=== PATIENT | female | born 2000 | race Caucasian/White ===

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

== ENCOUNTER → 2019-05-30 | Outpatient (CLI) | payer OTHER ==
[2019-06-01 02:05] LABS: CHLAMYDIA TRACHOMATIS, NAA Negative (Negative); NEISSERIA GONORRHOEAE, NAA Negative (Negative)
== END ==
LOC: LAB 11:51 → LAB SHORT 11:51
PROVIDERS: Registered Nurse Community Health
DX: Z34.91 Encounter for supervision of normal pregnancy, unspecified, first trimester (principal)
CPT/HCPCS: 87491; 87591

== ENCOUNTER → 2019-12-18 | Outpatient (CLI) | payer OTHER | LOC: LAB SHORT 12:17 → LAB 12:17 | DX: Z34.92 Encounter for supervision of normal pregnancy, unspecified, second trimester (principal) | CPT/HCPCS: 87081; 87653 ==

== ENCOUNTER 2020-01-14 18:29 | Inpatient (IN) | payer OTHER ==
[~2020-01-14] VITALS: Ht 165.1 cm; Wt 81.8 kg
[2020-01-14] MEDS ORDERED: PRENATAL TABLE1 EAC2 PO (20:09)
[2020-01-14] MEDS ORDERED: ALBU90OI INH (20:10)
[2020-01-14 20:12] LABS: BASOPHILS ABSOLUTE AUTO 0.04 K/mm3 (0.00-0.23); BASOPHILS PERCENT AUTO 0 % (0-2); EOSINOPHILS ABSOLUTE AUTO 0.05 K/mm3 (0.00-0.68); EOSINOPHILS PERCENT AUTO 0 % (0-6); Hematocrit 36.9 % (33.0-51.0); Hemoglobin 12.6 g/dL (11.5-16.0); IMMATURE GRAN ABSOLUTE AUTO 0.11 K/mm3 (0.00-0.10); IMMATURE GRAN PERCENT AUTO 1 % (0-1); LYMPHOCYTES ABSOLUTE AUTO 2.57 K/mm3 (0.84-5.20); LYMPHOCYTES PERCENT AUTO 16 % (21-46); MONOCYTES ABSOLUTE AUTO 1.18 K/mm3 (0.16-1.47); MONOCYTES PERCENT AUTO 7 % (4-13); Mean Corpuscular HGB 29.9 pg (26.0-34.0); Mean Corpuscular HGB Conc 34.1 g/dL (31.5-36.5); Mean Corpuscular Volume 87 fL (80-100); Mean Platelet Volume 11.8 fL (9.1-12.4); NEUTROPHILS ABSOLUTE AUTO 12.63 K/mm3 (1.96-9.15); NEUTROPHILS PERCENT AUTO 76 % (41-73); Platelet Count 193 K/mm3 (150-400); RDW Coefficient Variation 13.4 % (11.7-14.2); RDW Standard Deviation 42.9 fL (35.1-46.3); Red Blood Cell Count 4.22 M/mm3 (3.80-5.20); White Blood Cell Count 16.58 K/mm3 (4.00-11.30)
[2020-01-16 05:56] LABS: BASOPHILS ABSOLUTE AUTO 0.05 K/mm3 (0.00-0.23); BASOPHILS PERCENT AUTO 0 % (0-2); EOSINOPHILS ABSOLUTE AUTO 0.24 K/mm3 (0.00-0.68); EOSINOPHILS PERCENT AUTO 2 % (0-6); Hematocrit 34.6 % (33.0-51.0); Hemoglobin 11.1 g/dL (11.5-16.0); IMMATURE GRAN PERCENT AUTO 1 % (0-1); LYMPHOCYTES ABSOLUTE AUTO 3.23 K/mm3 (0.84-5.20); LYMPHOCYTES PERCENT AUTO 25 % (21-46); MONOCYTES ABSOLUTE AUTO 1.14 K/mm3 (0.16-1.47); MONOCYTES PERCENT AUTO 9 % (4-13); Mean Corpuscular HGB 29.4 pg (26.0-34.0); Mean Corpuscular HGB Conc 32.1 g/dL (31.5-36.5); Mean Platelet Volume 11.5 fL (9.1-12.4); NEUTROPHILS ABSOLUTE AUTO 7.98 K/mm3 (1.96-9.15); NEUTROPHILS PERCENT AUTO 63 % (41-73); Platelet Count 146 K/mm3 (150-400); RDW Coefficient Variation 14.1 % (11.7-14.2); RDW Standard Deviation 46.7 fL (35.1-46.3); Red Blood Cell Count 3.77 M/mm3 (3.80-5.20); White Blood Cell Count 12.74 K/mm3 (4.00-11.30)
[2020-01-16 06:02] LABS: Mean Corpuscular Volume 92 fL (80-100)
[2020-01-16] MEDS ORDERED: IBUP800 (09:28)
--- NOTE | 2020-01-16 10:03 | NUR ---
rx for ibuprofen 800mg, take 1 po q 8 hrs prn pain, #30, 1 refill called in to [facility] automated line at [id number]
--- NOTE | 2020-01-16 10:46 | NUR ---
D/C INSTRUCTIONS DISCUSSED AND SIGNED. PT ARANZA NB CARE WELL. NO QUESTIONS OR CONCERNS AT THIS TIME.
--- NOTE | 2020-01-16 10:54 | NUR ---
D/C HOME WITH BABY
--- NOTE | 2020-01-16 12:07 | NUR ---
CONSULT. PLANNING HOME TODAY. BABY IS CURRENTLY AT BREAST, INSTRUCT/DEMO POSITIONING, OBTAINING AN INITIAL DEEPER LATCH, WIDENING LATCH FURTHER FOR BETTER COMFORT. BOTH PARENTS LOVING AND ATTENTIVE TO BABY. INSTRUCT IN CHANGES TO EXPECT DURING THE FIRST WEEK WITH FEEDINGS AND WITH BABY AND REFERRED TO BF [facility] AND BF [facility] FOR PHOTOS AND INFORMATION. DENIES FURTHER QUESTIONS. HANDLING BABY WELL.
== END 2020-01-16 10:55 | disposition home or self-care (01) | DRG 807 ==
LOC: OBS 18:29 → BC 18:29 → OBS 19:48 → BC 19:49
PROVIDERS: ADMIT Registered Nurse Community Health
PROC: 10E0XZZ Delivery of Products of Conception, External Approach (ICD-10-PCS; principal; 2020-01-15)
PROC: 0KQM0ZZ Repair Perineum Muscle, Open Approach (ICD-10-PCS; 2020-01-15)
PROC: 10907ZC Drainage of Amniotic Fluid, Therapeutic from Products of Conception, Via Natural or Artificial Opening (ICD-10-PCS; 2020-01-15)
PROC: 3E0R3BZ Introduction of Anesthetic Agent into Spinal Canal, Percutaneous Approach (ICD-10-PCS; 2020-01-15)
DX: O69.81X0 Labor and delivery complicated by cord around neck, without compression, not applicable or unspecified (principal); Z37.0 Single live birth; O70.1 Second degree perineal laceration during delivery; Z3A.40 40 weeks gestation of pregnancy
CPT/HCPCS: 36415; 51702; 85025; 86850; 86900; 86901; 99214; A9270; J1885; J2001; J2210; J2405; J2590; J3010; J7120

== ENCOUNTER 2023-09-09 03:04 | Day surgery (SDC) | payer BC, OTHER ==
[~2023-09-09 03:04] MED LIST: ALBU90OI INH; IBUP800; PRENATAL TABLE1 EAC2 PO
[2023-09-09 08:02] VITALS: BP 129/76
[2023-09-09] MEDS ORDERED: MONT10T PO (08:56)
== END 2023-09-09 09:10 | disposition home or self-care (01) ==
LOC: ATC 03:04
DX: O99.019 Anemia complicating pregnancy, unspecified trimester (principal)
CPT/HCPCS: 96365; J2916

== ENCOUNTER 2023-09-16 05:00 | Day surgery (SDC) | payer BC, OTHER ==
[~2023-09-16 05:00] MED LIST changes: +MONT10T PO
[2023-09-16 08:32] VITALS: BP 116/72
== END 2023-09-16 09:35 | disposition home or self-care (01) ==
LOC: ATC 05:00
DX: O99.019 Anemia complicating pregnancy, unspecified trimester (principal)
CPT/HCPCS: 96365; J2916

== ENCOUNTER 2023-09-23 02:35 | Day surgery (SDC) | payer BC, OTHER ==
[2023-09-23 14:45] VITALS: BP 112/66
== END 2023-09-23 23:02 | disposition home or self-care (01) ==
LOC: ATC 02:35
DX: O99.013 Anemia complicating pregnancy, third trimester (principal); D64.9 Anemia, unspecified; Z3A.00 Weeks of gestation of pregnancy not specified
CPT/HCPCS: 96365; J2916

== ENCOUNTER 2023-10-28 02:28 | Inpatient (IN) | payer BC, OTHER ==
[~2023-10-28] VITALS: Ht 165.1 cm; Wt 88.0 kg
[2023-10-28] VITALS (25 sets, daily range): BP systolic 85–133; BP diastolic 50–83
[2023-10-28 04:38] LABS: BASOPHILS ABSOLUTE AUTO 0.03 K/mm3 (0.00-0.23); BASOPHILS PERCENT AUTO 0 % (0-2); EOSINOPHILS ABSOLUTE AUTO 0.06 K/mm3 (0.00-0.68); EOSINOPHILS PERCENT AUTO 0 % (0-6); Hematocrit 34.6 % (33.0-51.0); Hemoglobin 11.8 g/dL (11.5-16.0); IMMATURE GRAN ABSOLUTE AUTO 0.09 K/mm3 (0.00-0.10); IMMATURE GRAN PERCENT AUTO 1 % (0-1); LYMPHOCYTES ABSOLUTE AUTO 2.19 K/mm3 (0.84-5.20); LYMPHOCYTES PERCENT AUTO 16 % (21-46); MONOCYTES ABSOLUTE AUTO 0.83 K/mm3 (0.16-1.47); MONOCYTES PERCENT AUTO 6 % (4-13); Mean Corpuscular HGB 28.6 pg (26.0-34.0); Mean Corpuscular HGB Conc 34.1 g/dL (31.5-36.5); Mean Corpuscular Volume 84 fL (80-100); Mean Platelet Volume 11.4 fL (9.1-12.4); NEUTROPHILS ABSOLUTE AUTO 10.36 K/mm3 (1.96-9.15); NEUTROPHILS PERCENT AUTO 76 % (41-73); Platelet Count 233 K/mm3 (150-400); RDW Coefficient Variation 14.3 % (11.7-14.2); RDW Standard Deviation 43.9 fL (35.1-46.3); Red Blood Cell Count 4.13 M/mm3 (3.80-5.20); White Blood Cell Count 13.56 K/mm3 (4.00-11.30)
[2023-10-28] MEDS ORDERED: IBUP800 PO (10:25)
--- NOTE | 2023-10-28 17:30 | NUR ---
laying in dad bed with fob, it more comfortable than the labor bed. baby sleeping in crib. denies needing anything
[2023-10-29 02:18] VITALS: BP 85/55
[2023-10-29 02:30] VITALS: BP 95/60
[2023-10-29 06:53] LABS: BASOPHILS ABSOLUTE AUTO 0.06 K/mm3 (0.00-0.23); BASOPHILS PERCENT AUTO 1 % (0-2); EOSINOPHILS ABSOLUTE AUTO 0.34 K/mm3 (0.00-0.68); EOSINOPHILS PERCENT AUTO 3 % (0-6); Hematocrit 33.6 % (33.0-51.0); Hemoglobin 11.1 g/dL (11.5-16.0); IMMATURE GRAN ABSOLUTE AUTO 0.09 K/mm3 (0.00-0.10); IMMATURE GRAN PERCENT AUTO 1 % (0-1); LYMPHOCYTES ABSOLUTE AUTO 3.66 K/mm3 (0.84-5.20); LYMPHOCYTES PERCENT AUTO 32 % (21-46); MONOCYTES ABSOLUTE AUTO 0.84 K/mm3 (0.16-1.47); MONOCYTES PERCENT AUTO 7 % (4-13); Mean Corpuscular HGB 28.5 pg (26.0-34.0); Mean Corpuscular Volume 86 fL (80-100); Mean Platelet Volume 11.6 fL (9.1-12.4); NEUTROPHILS ABSOLUTE AUTO 6.63 K/mm3 (1.96-9.15); NEUTROPHILS PERCENT AUTO 57 % (41-73); Platelet Count 225 K/mm3 (150-400); RDW Coefficient Variation 14.6 % (11.7-14.2); RDW Standard Deviation 45.9 fL (35.1-46.3); Red Blood Cell Count 3.89 M/mm3 (3.80-5.20); White Blood Cell Count 11.62 K/mm3 (4.00-11.30)
[2023-10-29 07:28] VITALS: BP 108/63
--- NOTE | 2023-10-29 09:22 | NUR ---
DC HOME WITH AND BABY, HAS PPFU APPT, ENCOURAGED TO CALL WITH QUESTIONS
== END 2023-10-29 09:22 | disposition home or self-care (01) | DRG 807 ==
LOC: OBS 02:28 → BC 02:32 → OBS 02:42 → BC 02:44
PROVIDERS: ADMIT Family Medicine
PROC: 10E0XZZ Delivery of Products of Conception, External Approach (ICD-10-PCS; principal; 2023-10-28)
PROC: 0HQ9XZZ Repair Perineum Skin, External Approach (ICD-10-PCS; 2023-10-28)
DX: O48.0 Post-term pregnancy (principal); Z37.0 Single live birth; Z3A.40 40 weeks gestation of pregnancy; O70.0 First degree perineal laceration during delivery
CPT/HCPCS: 36415; 85025; 86850; 86900; 86901; A9270; C1751; J2590; J3010; J7120

== ENCOUNTER → 2024-12-03 | Outpatient (CLI) | payer BC, OTHER ==
[~2024-12-03] MED LIST changes: +IBUP800 PO
[2024-12-03 18:09] LABS: BASOPHILS ABSOLUTE AUTO 0.02 K/mm3 (0.00-0.23); BASOPHILS PERCENT AUTO 0 % (0-2); EOSINOPHILS ABSOLUTE AUTO 0.02 K/mm3 (0.00-0.68); EOSINOPHILS PERCENT AUTO 0 % (0-6); Hematocrit 42.8 % (33.0-51.0); IMMATURE GRAN ABSOLUTE AUTO 0.04 K/mm3 (0.00-0.10); IMMATURE GRAN PERCENT AUTO 0 % (0-1); LYMPHOCYTES ABSOLUTE AUTO 0.57 K/mm3 (0.84-5.20); LYMPHOCYTES PERCENT AUTO 5 % (21-46); MONOCYTES ABSOLUTE AUTO 0.32 K/mm3 (0.16-1.47); MONOCYTES PERCENT AUTO 3 % (4-13); Mean Corpuscular HGB 28.1 pg (26.0-34.0); Mean Corpuscular HGB Conc 32.7 g/dL (31.5-36.5); Mean Corpuscular Volume 86 fL (80-100); Mean Platelet Volume 10.3 fL (9.1-12.4); Platelet Count 280 K/mm3 (150-400); RDW Standard Deviation 39.7 fL (35.1-46.3); Red Blood Cell Count 4.99 M/mm3 (3.80-5.20); White Blood Cell Count 11.77 K/mm3 (4.00-11.30)
[2024-12-03 18:22] LABS: Albumin, Blood 4.4 g/dL (3.4-5.0); Bilirubin, Total 0.5 mg/dL (0.1-1.0); Bun/Creatinine Ratio 22.4 (12.0-20.0); Calcium, Blood 8.7 mg/dL (8.5-10.1); Creatinine, Blood 0.85 mg/dL (0.40-1.00); Globulin, Blood 4.3 g/dL (2.2-4.0); Total Protein, Blood 8.7 g/dL (6.4-8.2)
[2024-12-03 18:45] LABS: NEUTROPHILS PERCENT AUTO 92 % (41-73)
== END ==
LOC: LAB 18:06 → LAB SHORT 18:06
PROVIDERS: Physician Assistant Medical
DX: R00.0 Tachycardia, unspecified (principal)
CPT/HCPCS: 80053; 85025